=== PATIENT | female | born 1995 | race Hispanic/Latino ===

== ENCOUNTER 2023-09-24 07:56 | Emergency (ER) | payer SELFPAY ==
[2023-09-24] MEDS: Sodium Chloride 0.9% 1,000 ML IV ONE (08:30)
[2023-09-24] MEDS: Ondansetron 4 MG/2 ML SDV IVPUSH ONE (08:33)
[2023-09-24] MEDS: Ketorolac 30 MG/ML SDV IVPUSH ONE (08:33)
[2023-09-24 08:54] LABS: A/G RATIO 0.9 (0.9-1.6); ALANINE AMINOTRANSFERASE,ALT 33 IU/L (14-63); ALBUMIN 3.7 g/dL (3.4-5.0); ALKALINE PHOSPHATASE 63 U/L (46-116); ASPARTATE AMNIOTRANSFERASE,AST 22 IU/L (15-37); BILIRUBIN TOTAL 0.3 mg/dL (0.2-1.0); BLOOD UREA NITROGEN,BUN 10 mg/dL (7.0-18.0); CALCIUM 9.2 mg/dL (8.5-10.1); CARBON DIOXIDE,CO2 20.6 mmol/L (21.0-32.0); CHLORIDE,CL 103 mmol/L (98-107); CREATININE 0.9 mg/dL (0.6-1.0); EST CRCL DRUG DOSING (CG) 75.61 mL/min; GLUCOSE RANDOM 108 mg/dL (74-106); LIPASE 45 U/L (16-77); POTASSIUM,K 3.6 mmol/L (3.5-5.1); PROTEIN TOTAL,TP 7.8 g/dL (6.4-8.2); SODIUM,NA 139 mmol/L (136-145)
[2023-09-24 08:55] LABS: ESTIMATED GFR 88 mL/min (>60); HCG QUANTITATIVE < 1.0 mIU/mL
[2023-09-24 09:03] LABS: BASOPHILS ABSOLUTE AUTO 0.04 K/uL (0.00-0.20); BASOPHILS PERCENT AUTO 0.2 % (0.0-1.0); EOSINOPHILS ABSOLUTE AUTO 0.05 K/uL (0.00-0.45); EOSINOPHILS PERCENT AUTO 0.3 % (0.0-6.0); HEMATOCRIT 37.4 % (37.0-47.0); HEMOGLOBIN 12.8 g/dL (12.0-16.0); IMMATURE GRAN ABSOLUTE AUTO 0.06 K/uL (0.00-0.05); IMMATURE GRAN PERCENT AUTO 0.4 % (0.0-0.4); LYMPHOCYTES ABSOLUTE AUTO 2.16 K/uL (1.00-4.80); LYMPHOCYTES PERCENT AUTO 13.4 % (24.0-44.0); MEAN CORPUSCULAR HEMOGLOBIN 30.3 pg (28.0-32.0); MEAN CORPUSCULAR HGB CONC 34.2 g/dL (32.0-36.0); MEAN CORPUSCULAR VOLUME 88.6 fL (83.0-99.0); MEAN PLATELET VOLUME 10.2 fL (9.4-12.3); MONOCYTES ABSOLUTE AUTO 0.99 K/uL (0.00-0.80); MONOCYTES PERCENT AUTO 6.2 % (0.0-8.0); NEUTROPHILS ABSOLUTE AUTO 12.76 K/uL (1.80-7.70); NEUTROPHILS PERCENT AUTO 79.5 % (41.0-71.0); PLATELET COUNT,PLT 266 K/uL (150-400); RED BLOOD CELL COUNT 4.22 M/uL (4.10-5.30); WHITE BLOOD CELL COUNT,WBC 16.06 K/uL (3.9-11.3)
== END 2023-09-24 10:53 | disposition home or self-care (01) ==
LOC: MW.ED 07:56
DX: R10.13 Epigastric pain (principal); R11.2 Nausea with vomiting, unspecified; Z79.899 Other long term (current) drug therapy
CPT/HCPCS: 36415; 80053; 81025; 83690; 84702; 85025; 96361; 96374; 96375; 99284; J1885; J2405; J7030

== ENCOUNTER 2024-01-12 19:39 | Emergency (ER) | payer SELFPAY ==
[2024-01-12] MEDS: Acetaminophen 500 MG Tab PO ONE (20:25)
[2024-01-12] MEDS: Ibuprofen 600 MG Tab PO ONE (20:25)
== END 2024-01-12 22:22 | disposition home or self-care (01) ==
LOC: MW.ED 19:39
DX: S56.912A Strain of unspecified muscles, fascia and tendons at forearm level, left arm, initial encounter (principal); S50.12XA Contusion of left forearm, initial encounter; M25.532 Pain in left wrist; W50.0XXA Accidental hit or strike by another person, initial encounter; Y93.61 Activity, american tackle football
CPT/HCPCS: 73060; 73080; 73090; 73110; 99284; A9270

== ENCOUNTER 2024-11-09 00:23 | Inpatient (IN) | payer SELFPAY ==
[2024-11-09] MEDS ORDERED: Sodium Chloride 0.9% 10 ML Syringe FLUSH PRN (01:00)
[2024-11-09] MEDS ORDERED: Ondansetron 4 MG/2 ML SDV IVPUSH PRN ×4 (01:00→18:45)
[2024-11-09] MEDS ORDERED: Carboprost Tromethamine 250 MCG/1 mL Vial IM PRN (01:00)
[2024-11-09] MEDS ORDERED: Sodium Chloride 0.9% 2.5 ML Syringe FLUSH PRN (01:00)
[2024-11-09] MEDS ORDERED: Oxytocin/0.9 % Sodium Chloride 30 UNIT/500 ML BAG IV SCH (01:00)
[2024-11-09] MEDS ORDERED: Water For Irrigation,Sterile 1,000 ML Container IRR PRN (01:00)
[2024-11-09 01:16] LABS: MEAN PLATELET VOLUME 11.2 fL (9.4-12.3); NRBC ABSOLUTE 0.00 K/uL (0.00-0.02); NRBC PERCENT 0.0 /100WBC (0.0-0.2); PLATELET COUNT,PLT 176 K/uL (150-400); RED BLOOD CELL COUNT 3.61 M/uL (4.10-5.30); WHITE BLOOD CELL COUNT,WBC 9.56 K/uL (3.9-11.3)
[2024-11-09] MEDS: Misoprostol 25 MCG (1/4 of 100 MCG) Tab VAG PRN ×2 (01:35→08:01)
[2024-11-09] MEDS: Lactated Ringers 1,000 ML IV SCH (04:40)
[2024-11-09] MEDS: Butorphanol 1 MG/ML SDV IVPUSH PRN (05:25)
[2024-11-09] MEDS ORDERED: dexmedeTOMIDine HCl 200 MCG/2 ML SDV ONE (07:36)
[2024-11-09] MEDS ORDERED: Ropivacaine HCl/PF 200 ML ONE (07:36)
[2024-11-09] MEDS: Ropivacaine HCl/PF 400 MG in Premix Bag 1 BAG EPIDUR SCH (07:53)
[2024-11-09] MEDS ORDERED: ePHEDrine 50 MG/ML SDV IVPUSH PRN (07:57)
[2024-11-09] MEDS ORDERED: dexmedeTOMIDine HCl 200 MCG/2 ML SDV EPIDUR SCH (08:00)
[2024-11-09] MEDS: Terbutaline 1 MG/ML SDV SUBCUT PRN (14:03)
[2024-11-09] MEDS: Oxytocin/0.9 % Sodium Chloride 30 UNIT/500 ML BAG IV SCH (15:20)
[2024-11-09] MEDS ORDERED: fentaNYL 100 MCG/2 ML SDV ONE (16:18)
[2024-11-09] MEDS ORDERED: Ondansetron 4 MG/2 ML SDV ONE (16:18)
[2024-11-09] MEDS ORDERED: Morphine PF 10 MG/10 ML SDV ONE (16:18)
[2024-11-09] MEDS ORDERED: Oxytocin 10 Units/1 ML SDV ONE (16:18)
[2024-11-09] MEDS ORDERED: Ketorolac 30 MG/ML SDV ONE (16:18)
[2024-11-09] MEDS ORDERED: Ropivacaine 0.5% 5 MG/ML 30 ML SDV ONE (16:18)
[2024-11-09] MEDS ORDERED: Oxytocin 10 Units/1 ML SDV IM PRN (17:31)
[2024-11-09] MEDS ORDERED: diphenhydrAMINE 50 MG/ML SDV IVPUSH PRN ×2 (17:31→18:45)
[2024-11-09] MEDS ORDERED: Lanolin 100% Cream 7 GM Tube TOP PRN (17:31)
[2024-11-09] MEDS ORDERED: Naloxone 0.4 MG/ML SDV IVPUSH PRN ×2 (17:31→18:45)
[2024-11-09] MEDS ORDERED: Lactated Ringers 1,000 ML IV SCH (17:45)
[2024-11-09 17:56] LABS: PH,UMBILICAL ARTERIAL 7.24 (7.18-7.38); PH,UMBILICAL VENOUS 7.28 (7.25-7.45)
[2024-11-09] MEDS ORDERED: fentaNYL 50 MCG/ML SDV IVPUSH PRN (18:45)
[2024-11-09] MEDS ORDERED: Albuterol 0.083% 2.5 MG/3 ML Neb Soln NEB PRN (18:45)
[2024-11-09] MEDS ORDERED: Nalbuphine 10 MG/1 ML Vial IVPUSH PRN (18:45)
[2024-11-09] MEDS: fentaNYL 100 MCG/2 ML SDV IVPUSH PRN (19:02)
[2024-11-10] MEDS: Ketorolac 30 MG/ML SDV IVPUSH SCH (06:07)
[2024-11-10] MEDS: Acetaminophen/oxyCODONE 325-5 MG Tab PO PRN (15:56)
== END 2024-11-11 10:30 | disposition home or self-care (01) | DRG 788 ==
LOC: MW.OB 00:23 → OBSVTOIN 16:34 → MW.OB 21:28
PROVIDERS: ADMIT Obstetrics & Gynecology; ATTEND Obstetrics & Gynecology
PROC: 3E0R3BZ Introduction of Anesthetic Agent into Spinal Canal, Percutaneous Approach (ICD-10-PCS; 2024-11-09)
PROC: 3E033VJ Introduction of Other Hormone into Peripheral Vein, Percutaneous Approach (ICD-10-PCS; 2024-11-09)
PROC: 10907ZC Drainage of Amniotic Fluid, Therapeutic from Products of Conception, Via Natural or Artificial Opening (ICD-10-PCS; 2024-11-09)
PROC: 10D00Z1 Extraction of Products of Conception, Low, Open Approach (ICD-10-PCS; principal; 2024-11-09 16:30)
DX: O48.0 Post-term pregnancy (principal); Z3A.40 40 weeks gestation of pregnancy; Z37.0 Single live birth; O36.8330 Maternal care for abnormalities of the fetal heart rate or rhythm, third trimester, not applicable or unspecified; O99.02 Anemia complicating childbirth; Z79.899 Other long term (current) drug therapy
CPT/HCPCS: 36415; 51702; 59025; 82803; 85014; 85018; 85027; 86592; 86850; 86900; 86901; A9270-GY; J0166; J0456; J0595; J0665; J0690; J1100; J1885; J2003; J2270; J2274; J2371; J2405; J2590; J2795; J3010; J3105; J7120

== ENCOUNTER 2025-02-15 06:56 | Emergency (ER) | payer SELFPAY ==
[2025-02-15 07:28] LABS: APPEARANCE,URINE CLEAR; GLUCOSE,URINE NEGATIVE (NEGATIVE); OCCULT BLOOD,URINE NEGATIVE (NEGATIVE)
[2025-02-15 07:44] LABS: BASOPHILS ABSOLUTE AUTO 0.03 K/uL (0.00-0.20); BASOPHILS PERCENT AUTO 0.3 % (0.0-1.0); EOSINOPHILS ABSOLUTE AUTO 0.08 K/uL (0.00-0.45); EOSINOPHILS PERCENT AUTO 0.9 % (0.0-6.0); IMMATURE GRAN ABSOLUTE AUTO 0.02 K/uL (0.00-0.05); IMMATURE GRAN PERCENT AUTO 0.2 % (0.0-0.4); LYMPHOCYTES ABSOLUTE AUTO 2.25 K/uL (1.00-4.80); LYMPHOCYTES PERCENT AUTO 25.9 % (24.0-44.0); MEAN PLATELET VOLUME 10.4 fL (9.4-12.3); MONOCYTES ABSOLUTE AUTO 0.61 K/uL (0.00-0.80); MONOCYTES PERCENT AUTO 7.0 % (0.0-8.0); NEUTROPHILS ABSOLUTE AUTO 5.69 K/uL (1.80-7.70); NEUTROPHILS PERCENT AUTO 65.7 % (41.0-71.0); NRBC ABSOLUTE 0.00 K/uL (0.00-0.02); NRBC PERCENT 0.0 /100WBC (0.0-0.2); PLATELET COUNT,PLT 268 K/uL (150-400); RED BLOOD CELL COUNT 4.34 M/uL (4.10-5.30); WHITE BLOOD CELL COUNT,WBC 8.68 K/uL (3.9-11.3)
[2025-02-15] MEDS: Iopamidol 755 Mg/ML 100 ML Bottle IVPUSH ONE (07:51)
[2025-02-15 07:52] LABS: A/G RATIO 1.1 (0.9-1.6); ALANINE AMINOTRANSFERASE,ALT 85 IU/L (14-63); ASPARTATE AMNIOTRANSFERASE,AST 29 IU/L (15-37); BILIRUBIN TOTAL 0.3 mg/dL (0.2-1.0); BLOOD UREA NITROGEN,BUN 13 mg/dL (7.0-18.0); CARBON DIOXIDE,CO2 22.5 mmol/L (21.0-32.0); CHLORIDE,CL 107 mmol/L (98-107); CREATININE 0.7 mg/dL (0.6-1.0); EST CRCL DRUG DOSING (CG) 99.62 mL/min; GLUCOSE RANDOM 103 mg/dL (74-106); POTASSIUM,K 4.1 mmol/L (3.5-5.1); PROTEIN TOTAL,TP 7.5 g/dL (6.4-8.2); SODIUM,NA 139 mmol/L (136-145)
[2025-02-15 07:53] LABS: ESTIMATED GFR 119 mL/min (>60)
[2025-02-15] MEDS: Ondansetron 4 MG/2 ML SDV IVPUSH ONE (08:14)
== END 2025-02-15 09:49 | disposition home or self-care (01) ==
LOC: MW.ED 06:56
DX: K80.70 Calculus of gallbladder and bile duct without cholecystitis without obstruction (principal)
CPT/HCPCS: 36415; 74177; 76705; 80053; 81003; 81025; 83690; 84484; 85025; 96374; 96375; 99284; J2405; Q9967; 99283; J1171

== ENCOUNTER 2025-03-02 06:03 | Emergency (ER) | payer SELFPAY ==
[2025-03-02] MEDS ORDERED: Sodium Chloride 0.9% 10 ML Syringe FLUSH PRN (06:06)
[2025-03-02] MEDS ORDERED: Sodium Chloride 0.9% 2.5 ML Syringe FLUSH PRN (06:06)
[2025-03-02 06:28] LABS: BASOPHILS ABSOLUTE AUTO 0.03 K/uL (0.00-0.20); BASOPHILS PERCENT AUTO 0.3 % (0.0-1.0); EOSINOPHILS ABSOLUTE AUTO 0.10 K/uL (0.00-0.45); EOSINOPHILS PERCENT AUTO 1.0 % (0.0-6.0); IMMATURE GRAN ABSOLUTE AUTO 0.02 K/uL (0.00-0.05); IMMATURE GRAN PERCENT AUTO 0.2 % (0.0-0.4); LYMPHOCYTES ABSOLUTE AUTO 2.88 K/uL (1.00-4.80); LYMPHOCYTES PERCENT AUTO 29.2 % (24.0-44.0); MEAN PLATELET VOLUME 10.3 fL (9.4-12.3); MONOCYTES ABSOLUTE AUTO 0.78 K/uL (0.00-0.80); MONOCYTES PERCENT AUTO 7.9 % (0.0-8.0); NEUTROPHILS ABSOLUTE AUTO 6.06 K/uL (1.80-7.70); NEUTROPHILS PERCENT AUTO 61.4 % (41.0-71.0); NRBC ABSOLUTE 0.00 K/uL (0.00-0.02); NRBC PERCENT 0.0 /100WBC (0.0-0.2); PLATELET COUNT,PLT 266 K/uL (150-400); RED BLOOD CELL COUNT 4.45 M/uL (4.10-5.30); WHITE BLOOD CELL COUNT,WBC 9.87 K/uL (3.9-11.3)
[2025-03-02] MEDS: Ketorolac 30 MG/ML SDV IVPUSH ONE (06:28)
[2025-03-02] MEDS: Ondansetron 4 MG/2 ML SDV IVPUSH ONE (06:29)
[2025-03-02 06:32] LABS: APPEARANCE,URINE CLEAR; GLUCOSE,URINE NEGATIVE (NEGATIVE); OCCULT BLOOD,URINE NEGATIVE (NEGATIVE)
[2025-03-02 06:58] LABS: A/G RATIO 1.1 (0.9-1.6); ALANINE AMINOTRANSFERASE,ALT 50.0 IU/L (14-63); ASPARTATE AMNIOTRANSFERASE,AST 24.0 IU/L (15-37); BILIRUBIN TOTAL 0.5 mg/dL (0.2-1.0); BLOOD UREA NITROGEN,BUN 12.0 mg/dL (7.0-18.0); CARBON DIOXIDE,CO2 23.4 mmol/L (21.0-32.0); CHLORIDE,CL 107.0 mmol/L (98-107); CREATININE 0.8 mg/dL (0.6-1.0); EST CRCL DRUG DOSING (CG) 91.68 mL/min; ESTIMATED GFR 101.0 mL/min (>60); GLUCOSE RANDOM 101.0 mg/dL (74-106); POTASSIUM,K 3.9 mmol/L (3.5-5.1); PROTEIN TOTAL,TP 7.4 g/dL (6.4-8.2); SODIUM,NA 140.0 mmol/L (136-145)
== END 2025-03-02 08:27 | disposition home or self-care (01) ==
LOC: MW.ED 06:03
DX: K80.20 Calculus of gallbladder without cholecystitis without obstruction (principal); Z79.899 Other long term (current) drug therapy
CPT/HCPCS: 36415; 76705; 80053; 81003; 83690; 84703; 85025; 96374; 96375; 99284; J1885; J2405; J7030; 99283; J1171

== ENCOUNTER 2025-03-05 23:58 | Emergency (ER) | payer SELFPAY ==
[2025-03-06] MEDS: Ondansetron 4 MG/2 ML SDV IVPUSH STA (00:10)
[2025-03-06 00:15] LABS: BASOPHILS ABSOLUTE AUTO 0.04 K/uL (0.00-0.20); BASOPHILS PERCENT AUTO 0.3 % (0.0-1.0); EOSINOPHILS ABSOLUTE AUTO 0.07 K/uL (0.00-0.45); EOSINOPHILS PERCENT AUTO 0.6 % (0.0-6.0); IMMATURE GRAN ABSOLUTE AUTO 0.03 K/uL (0.00-0.05); IMMATURE GRAN PERCENT AUTO 0.3 % (0.0-0.4); LYMPHOCYTES ABSOLUTE AUTO 4.57 K/uL (1.00-4.80); LYMPHOCYTES PERCENT AUTO 39.0 % (24.0-44.0); MEAN PLATELET VOLUME 9.9 fL (9.4-12.3); MONOCYTES ABSOLUTE AUTO 0.82 K/uL (0.00-0.80); MONOCYTES PERCENT AUTO 7.0 % (0.0-8.0); NEUTROPHILS ABSOLUTE AUTO 6.19 K/uL (1.80-7.70); NEUTROPHILS PERCENT AUTO 52.8 % (41.0-71.0); NRBC ABSOLUTE 0.00 K/uL (0.00-0.02); NRBC PERCENT 0.0 /100WBC (0.0-0.2); PLATELET COUNT,PLT 280 K/uL (150-400); RED BLOOD CELL COUNT 4.58 M/uL (4.10-5.30); WHITE BLOOD CELL COUNT,WBC 11.72 K/uL (3.9-11.3)
[2025-03-06 00:46] LABS: A/G RATIO 1.1 (0.9-1.6); ALANINE AMINOTRANSFERASE,ALT 45 IU/L (14-63); ASPARTATE AMNIOTRANSFERASE,AST 18 IU/L (15-37); BILIRUBIN TOTAL 0.3 mg/dL (0.2-1.0); BLOOD UREA NITROGEN,BUN 13 mg/dL (7.0-18.0); CARBON DIOXIDE,CO2 24.3 mmol/L (21.0-32.0); CHLORIDE,CL 105 mmol/L (98-107); CREATININE 0.9 mg/dL (0.6-1.0); ESTIMATED GFR 88 mL/min (>60); GLUCOSE RANDOM 101 mg/dL (74-106); POTASSIUM,K 3.7 mmol/L (3.5-5.1); PROTEIN TOTAL,TP 7.8 g/dL (6.4-8.2); SODIUM,NA 138 mmol/L (136-145)
[2025-03-06 00:57] LABS: APPEARANCE,URINE CLEAR; GLUCOSE,URINE NEGATIVE (NEGATIVE); OCCULT BLOOD,URINE NEGATIVE (NEGATIVE)
[2025-03-06] MEDS: Ketorolac 30 MG/ML SDV IVPUSH ONE (02:05)
== END 2025-03-06 03:17 | disposition home or self-care (01) ==
LOC: MW.ED 23:58
DX: K80.20 Calculus of gallbladder without cholecystitis without obstruction (principal); Z79.899 Other long term (current) drug therapy
CPT/HCPCS: 36415; 76705; 80053; 81003; 81025; 83690; 85025; 96361; 96374; 96375; 99284; A9270; J1885; J2270; J2405; J7030; J1171

== ENCOUNTER 2025-03-14 06:40 | Day surgery (SDC) | payer SELFPAY ==
[~2025-03-14 06:40] MED LIST: ceFAZolin 2 GM in Water For Injection, Sterile 20 ML IV ONE
[2025-03-14] MEDS: Scopalamine 1mg/3day Transdermal Patch TOP ONE (06:50)
[2025-03-14] MEDS ORDERED: fentaNYL 50 MCG/ML SDV IVPUSH PRN (07:12)
[2025-03-14] MEDS ORDERED: Ondansetron 4 MG/2 ML SDV IVPUSH PRN (07:12)
[2025-03-14] MEDS ORDERED: Naloxone 0.4 MG/ML SDV IVPUSH PRN (07:12)
[2025-03-14] MEDS ORDERED: Albuterol 0.083% 2.5 MG/3 ML Neb Soln NEB PRN (07:12)
[2025-03-14] MEDS ORDERED: propofoL 1,000 MG/100 ML 100 ML ONE (07:15)
[2025-03-14] MEDS ORDERED: Ropivacaine 0.5% 5 MG/ML 30 ML SDV ONE (07:16)
[2025-03-14] MEDS ORDERED: dexmedeTOMIDine HCl 200 MCG/2 ML SDV ONE (07:20)
[2025-03-14] MEDS ORDERED: Indocyanine Green 25 MG SDV ONE (07:25)
[2025-03-14] MEDS: Lactated Ringers 1,000 ML IV SCH (07:25)
[2025-03-14] MEDS ORDERED: Ketamine HCL/NACL, ISO-OSM 50 MG/5 ML Syringe ONE (07:29)
[2025-03-14] MEDS ORDERED: Ondansetron 4 MG/2 ML SDV ONE (08:10)
[2025-03-14] MEDS ORDERED: Dexamethasone 4 MG/ML 5 ML MDV ONE (08:10)
[2025-03-14] MEDS ORDERED: Ketorolac 30 MG/ML SDV ONE (08:54)
[2025-03-14] MEDS ORDERED: Lactated Ringers 1,000 ML IV SCH (09:45)
[2025-03-14] MEDS ORDERED: Acetaminophen/HYDROcodone 325-5 MG Tab PO PRN (09:55)
[2025-03-14] MEDS: Acetaminophen/HYDROcodone 325-5 MG Tab PO PRN (11:29)
== END 2025-03-14 12:32 | disposition home or self-care (01) ==
LOC: MW.SDS 06:40
PROVIDERS: ATTEND Surgery
DX: K81.1 Chronic cholecystitis (principal)
CPT/HCPCS: 47562; 81025; A9270; J0665; J0690; J1100; J1171; J1885; J2405; J2704; J2795; J7120; 00790; 64488; J3490